=== PATIENT | female | born 1955 | race Caucasian/White ===

== ENCOUNTER 2016-10-08 18:25 | Emergency (ER) | payer BC ==
[2016-10-08 20:21] LABS: Hematocrit 41 % (35-47); Hemoglobin 13.4 g/dl (12.0-16.0); Mean Corpuscular HGB Conc 33 g/dl (31-36); Mean Corpuscular Hemoglobin 30 pg (27-31); Mean Corpuscular Volume 93 fL (80-97); Mean Platelet Volume 8 um3 (7.4-10.4); Red Blood Count 4.43 10^6/ul (4.0-5.4); Red Cell Distribution Width 13 % (10.5-15)
[2016-10-08 20:38] LABS: Albumin 3.8 g/dL (3.2-5.2); BUN/Creatinine Ratio 20.2 (8-20); Calcium 9.1 mg/dL (8.6-10.3); EGFR African American 88.4 (>60); EGFR Non-African American 68.7 (>60); Globulin 2.6 g/dL (2-4); Potassium 3.7 mmol/L (3.5-5.0); Total Bilirubin 0.4 mg/dL (0.2-1.0); Total Protein 6.4 g/dL (6.4-8.9)
--- NOTE | 2016-10-08 21:01 | RAD ---
Indication: Chest pain. 2 views of the chest including dual energy PA views demonstrate no mediastinal shift. Heart is of normal size and configuration. Lung christian demonstrate no pleural fluid, pneumonia or pneumothorax. No changes noted since previous exam of July 24, 2016. IMPRESSION: No active cardiopulmonary disease is noted.
--- NOTE | 2016-10-08 21:21 | ED ---
Supriya Fried Rebecca, scribed for Luigi Chun MD on 10/08/16 at 1947 . HPI Chest Pain - HPI Summary HPI Summary: Pt is a 60 y/o F who presents to ED c/o CP. Pain began suddenly at 1700 upon coming in from being outdoors and lasted for approximately 30 minutes. Pain was in the right lateral region with radiation to the epigastrum. Pain is currently not present, ranked 0/10 and was characterized as burning. Sx aggravated by nothing, alleviated by cold water and nebulizer treatment. Denies cough. PMHx COPD. Previous similar episodes of pain, with the last one being too long ago to remember. - History of Current Complaint Chief Complaint: EDChestWallPain Time Seen by Provider: 10/08/16 19:38 Hx Obtained From: Patient Onset/Duration: Started Hours Ago, Resolved Time of Onset: 17:00 Timing: Constant, Lasting Minutes - 30 minutes Initial Severity: Moderate Current Severity: None Pain Intensity: 0 Pain Scale Used: 0-10 Numeric Chest Pain Location: Right Lateral Chest Pain Radiates: Yes Chest Pain Radiates To:: Epigastric Character: Burning Aggravating Factor(s): Nothing Alleviating Factor(s): Bronchodilators - Nebulizer, Other: - Cold water Associated Signs and Symptoms: Positive: Chest Pain. Negative: Cough - Allergy/Home Medications Allergies/Adverse Reactions: Allergies Allergy/AdvReac Type Severity Reaction Status Date / Time No Known Allergies Allergy Verified 08/04/15 09:37 PMH/Surg Hx/FS Hx/Imm Hx Endocrine/Hematology History: Reports: Hx Thyroid Disease - hypothyroidism Denies: Hx Diabetes Cardiovascular History: Reports: Hx Coronary Artery Disease - ON MEDICATION Denies: Hx Hypertension, Hx Pacemaker/ICD Respiratory History: Reports: Hx Chronic Obstructive Pulmonary Disease (COPD) Denies: Hx Asthma GI History: Reports: Hx Gastroesophageal Reflux Disease - ON MEDICATION Musculoskeletal History: Reports: Hx Bursitis - LEFT HIP Sensory History: Reports: Hx Contacts or Glasses - GLASSES Denies: Hx Hearing Aid Opthamlomology History: Reports: Hx Contacts or Glasses - GLASSES Neurological History: Reports: Hx Headaches - ON OCASSION, 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 Rt SHOULDER ARTHROSCOPY -02/15/13. PROLAPSED UTERUS -2005 Hx Anesthesia Reactions: Yes - VOMITING AFTER PELVIC SURGERY Infectious Disease History: No Infectious Disease History: Reports: Hx Shingles - states years ago Denies: Traveled Outside the [place] in Last 30 Days - Family History Known Family History: Positive: Other - Hypothyroid - Social History Alcohol Use: None Substance Use Type: Reports: None Smoking Status (MU): Heavy Every Day Tobacco Smoker Amount Used/How Often: 1/2 PPD Review of Systems Positive: Chest Pain - resolved s/p bronchodilators Negative: Cough All Other Systems Reviewed And Are Negative: Yes Physical Exam Triage Information Reviewed: Yes Vital Signs On Initial Exam: Initial Vitals Temp Pulse Resp BP Pulse Ox 98.8 F 71 20 104/64 95 10/08/16 18:32 10/08/16 18:32 10/08/16 18:32 10/08/16 18:32 10/08/16 18:32 Vital Signs Reviewed: Yes Appearance: Positive: No Pain Distress, Thin Skin: Positive: Warm Eyes: Positive: [place] ENT: Positive: Hearing grossly normal Neck: Positive: Supple Respiratory/Lung Sounds: Positive: Clear to Auscultation, Breath Sounds Present Cardiovascular: Positive: RRR Abdomen Description: Positive: Nontender, Soft Bowel Sounds: Positive: Present Musculoskeletal: Positive: Strength/ROM Intact Neurological: Positive: Sensory/Motor Intact, Normal Gait Psychiatric: Positive: Affect/Mood Appropriate Diagnostics - Vital Signs Vital Signs Temp Pulse Resp BP Pulse Ox 10/08/16 18:32 98.8 F 71 20 104/64 95 - Laboratory Lab Results: Lab Results 10/08/16 10/08/16 Range/Units 20:11 20:11 WBC 12.0 H (3.5-10.8) 10^3/ul RBC 4.43 (4.0-5.4) 10^6/ul Hgb 13.4 (12.0-16.0) g/dl Hct 41 (35-47) % MCV 93 (80-97) fL MCH 30 (27-31) pg MCHC 33 (31-36) g/dl RDW 13 (10.5-15) % Plt Count 264 (150-450) 10^3/ul MPV 8 (7.4-10.4) um3 Neut % (Auto) 62.9 (38-83) % Lymph % (Auto) 24.4 L (25-47) % Story % (Auto) 8.5 (1-9) % Eos % (Auto) 3.0 (0-6) % Baso % (Auto) 1.2 (0-2) % Absolute Neuts (auto) 7.6 (1.5-7.7) 10^3/ul Absolute Lymphs (auto) 2.9 (1.0-4.8) 10^3/ul Absolute Monos (auto) 1.0 H (0-0.8) 10^3/ul Absolute Eos (auto) 0.4 (0-0.6) 10^3/ul Absolute Basos (auto) 0.1 (0-0.2) 10^3/ul Absolute Nucleated RBC 0.01 10^3/ul Nucleated RBC % 0.1 Sodium 132 L (133-145) mmol/L Potassium 3.7 (3.5-5.0) mmol/L Chloride 101 (101-111) mmol/L Carbon Dioxide 26 (22-32) mmol/L Anion Gap 5 (2-11) mmol/L BUN 17 (6-24) mg/dL Creatinine 0.84 (0.51-0.95) mg/dL Est GFR ( Amer) 88.4 (>60) Est GFR (Non-Af Amer) 68.7 (>60) BUN/Creatinine Ratio 20.2 H (8-20) Glucose 114 H (70-100) mg/dL Calcium 9.1 (8.6-10.3) mg/dL Total Bilirubin 0.40 (0.2-1.0) mg/dL AST 19 (13-39) U/L ALT 17 (7-52) U/L Alkaline Phosphatase 82 (34-104) U/L Troponin I 0.00 (<0.04) ng/mL Total Protein 6.4 (6.4-8.9) g/dL Albumin 3.8 (3.2-5.2) g/dL Globulin 2.6 (2-4) g/dL Albumin/Globulin Ratio 1.5 (1-3) Result Diagrams: 10/08/16 20:11 10/08/16 20:11 Lab Statement: Any lab studies that have been ordered have been reviewed, and results considered in the medical decision making process. - Radiology CXR Xray Interpretation: No Acute Changes - No active cardiopulmonary disease is noted. Radiology Interpretation Completed By: Radiologist - EKG 1842 Cardiac Rate: Bradycardia - 59 bpm EKG Rhythm: Sinus Bradycardia ST Segment: Normal Re-Evaluation - Re-Evaluation First Eval Re-Evaluation Time: 21:17 Change: Improved Comment: Pt is feeling significantly better. Chest Pain Course/Dx - Course Assessment/Plan: Pt is a 60 y/o F with a CC of right lateral chest pain with radiation to the epigastrum. Pain began at 1700 today and lasted approximately 30 minutes. Alleviated by bronchodilators. Denies cough. PMHx COPD. CXR reveals no acute findings. EKG reveals sinus bradycardia. Troponin 0.00. Pt will be D/C to home with a dx of CP with a followup with her PCP. - Diagnoses Provider Diagnoses: Chest pain Discharge - Discharge Plan Condition: Stable Disposition: HOME Patient Education Materials: Chest Pain (ED) Referrals: Yoselin Alcala MD [Primary Care Provider] - 3 Days (Follow up with your primary care physician in the next 3 days. ) The documentation as recorded by the Supriya navarrete Rebecca accurately reflects the service I personally performed and the decisions made by me, Luigi Chun MD.
[2016-10-08 21:36] VITALS: BP 113/64
== END 2016-10-08 21:41 | disposition home or self-care (01) ==
LOC: ED 18:25
DX: R07.9 Chest pain, unspecified (principal); E03.9 Hypothyroidism, unspecified; I25.10 Atherosclerotic heart disease of native coronary artery without angina pectoris; K21.9 Gastro-esophageal reflux disease without esophagitis; G62.9 Polyneuropathy, unspecified; F17.290 Nicotine dependence, other tobacco product, uncomplicated; R00.1 Bradycardia, unspecified
CPT/HCPCS: 36415; 71020; 80053; 84484; 85025; 93005; 99283

== ENCOUNTER 2017-02-07 14:48 | Emergency (ER) | payer BC ==
[2017-02-07 19:42] VITALS: BP 118/70
[2017-02-07] MEDS ORDERED: NS 0.9% 1000 ML* 1,000 ML IV ONE (20:03)
--- NOTE | 2017-02-07 20:10 | RAD ---
HISTORY: Painful lump at umbilicus COMPARISONS: None relevant available at the time of dictation TECHNIQUE: Multiple transverse and longitudinal ultrasound images were obtained of the area of pain at the pelvis using grayscale, color Doppler, and spectral Doppler imaging FINDINGS: There is a hernia at the umbilicus. The hernia contents are isoechoic to adjacent fat, consistent with a fat-containing of focal hernia. There is no bowel mucosal signature. Arterial and venous waveforms are identified within the hernia on spectral tracings. IMPRESSION: FAT-CONTAINING UMBILICAL HERNIA. NO BOWEL MUCOSAL SIGNATURE IS NOTED. ARTERIAL AND VENOUS FLOW IS IDENTIFIED WITHIN THE HERNIA
--- NOTE | 2017-02-07 20:46 | ED ---
Rachel Fried Thomas, scribed for Yin Navarro MD on 02/07/17 at 1854 . Abdominal Pain/Female - HPI Summary HPI Summary: The pt is a 61 y/o F presenting to the ED c/o periumbilical abd pain that began two days ago. She states that her navel protrudes and is painful. She does not normally have an outie belly button. She claims that she has been previously diagnosed with a hernia, but she is unsure. When she is supine the pain is 2/ 10. The pain is 8/10 when it is palpated and when she moves. She last ate at 17: 00. The pain is aggravated by palpation and movement. The pt is greatly distressed at the prospect of palpation, which she is assured will be necessary if she is to consent to further treatment. Pt additionally c/o low back pain. PMHx: CAD, hyperthyroidism, COPD, GERD, L hip bursitis, GAINES, and peripheral neuropathy. PSHx: thyroidectomy, prolapsed uterus, and R shoulder arthroscopy. SHx: no alcohol, no illicit drugs, smoker (1/2 PPD). FHx: hypothyroidism. - History of Current Complaint Chief Complaint: EDAbdPain Stated Complaint: BELLY BUTTON SWELLING Time Seen by Provider: 02/07/17 18:39 Hx Obtained From: Patient Onset/Duration: Gradual Onset, Lasting Days - 2 days, Still Present Timing: Constant Severity Initially: Moderate Severity Currently: Severe Pain Intensity: 8 Pain Scale Used: 0-10 Numeric - with movement, 2/10 when supine Location: Umbilical Radiates: No Character: Sharp Aggravating Factor(s): Movement, Other: - palpation Alleviating Factor(s): Nothing Associated Signs and Symptoms: Positive: Back Pain - lower. Negative: Fever, Decreased Appetite, Nausea, Vomiting Allergies/Adverse Reactions: Allergies Allergy/AdvReac Type Severity Reaction Status Date / Time No Known Allergies Allergy Verified 08/04/15 09:37 PMH/Surg Hx/FS Hx/Imm Hx Previously Healthy: No Endocrine/Hematology History: Reports: Hx Thyroid Disease - hypothyroidism Denies: Hx Diabetes Cardiovascular History: Reports: Hx Coronary Artery Disease Denies: Hx Hypertension, Hx Pacemaker/ICD Respiratory History: Reports: Hx Chronic Obstructive Pulmonary Disease (COPD) Denies: Hx Asthma GI History: Reports: Hx Gastroesophageal Reflux Disease Musculoskeletal History: Reports: Hx Bursitis - LEFT HIP Sensory History: Reports: Hx Contacts or Glasses - GLASSES Denies: Hx Hearing Aid Opthamlomology History: Reports: Hx Contacts or Glasses - GLASSES Neurological History: Reports: Hx Headaches - ON OCASSION, 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 Rt SHOULDER ARTHROSCOPY -02/15/13. PROLAPSED UTERUS -2005 Hx Anesthesia Reactions: Yes - VOMITING AFTER PELVIC SURGERY Infectious Disease History: Reports: Hx Shingles - states years ago Denies: Traveled Outside the [place] in Last 30 Days - Family History Known Family History: Positive: Other - Hypothyroid - Social History Alcohol Use: None Substance Use Type: Reports: None Smoking Status (MU): Heavy Every Day Tobacco Smoker Amount Used/How Often: 1/2 PPD Review of Systems Constitutional: Negative Negative: Fever Eyes: Negative ENT: Negative Cardiovascular: Negative Respiratory: Negative Positive: Abdominal Pain - periumbilical, 8/10 when aggravated with palpation and movement, 2/10 when supine Genitourinary: Negative Positive: Other - POS: low back pain Skin: Negative Neurological: Negative Psychological: Normal All Other Systems Reviewed And Are Negative: Yes Physical Exam Triage Information Reviewed: Yes Vital Signs On Initial Exam: Initial Vitals Temp Pulse Resp BP Pulse Ox 98.2 F 68 18 118/70 97 02/07/17 15:22 02/07/17 15:22 02/07/17 15:22 02/07/17 15:22 02/07/17 15:22 Vital Signs Reviewed: Yes Appearance: Positive: Well-Appearing, Well-Nourished, Pain Distress Skin: Positive: Warm, Skin Color Reflects Adequate Perfusion, Other - redness 4cm surrounding umbilicus Head/Face: Positive: Normal Head/Face Inspection Eyes: Positive: Conjunctiva Clear ENT: Positive: Normal ENT inspection Neck: Positive: Supple Respiratory/Lung Sounds: Positive: Clear to Auscultation, Breath Sounds Present , Other - No respiratory distress Cardiovascular: Positive: RRR, Other - Brisk cap refill. Negative: Murmur Abdomen Description: Positive: Soft, Hernia @ - umbilical, Other: - tender to palpation to the periumbilicus. Negative: McBurney's Point Tenderness, Peritoneal Signs, Pulsatile Mass, Splenomegaly Bowel Sounds: Positive: Present Musculoskeletal: Positive: Strength/ROM Intact Neurological: Positive: Sensory/Motor Intact, Alert, Oriented to Person Place, Time Psychiatric: Positive: Normal Diagnostics - Vital Signs Vital Signs Temp Pulse Resp BP Pulse Ox 02/07/17 16:49 98.2 F 64 18 116/70 98 02/07/17 15:22 98.2 F 68 18 118/70 97 - Laboratory Lab Statement: Any lab studies that have been ordered have been reviewed, and results considered in the medical decision making process. - Additional Comments Diagnostic Additional Comments: US Abdo. Interpreted by radiologist. Impression: FAT-CONTAINING UMBILICAL HERNIA. NO BOWEL MUCOSAL SIGNATURE IS NOTED. ARTERIAL AND VENOUS FLOW IS IDENTIFIED WITHIN THE HERNIA Re-Evaluation - Re-Evaluation First Eval Re-Evaluation Time: 19:50 Change: Unchanged - pt refuses all bloodwork and IV meds Abdominal Pain Fem Course/Dx - Course Course Of Treatment: The pt is a 61 y/o F presenting to the ED c/o periumbilical abd pain that began two days ago. She states that her navel protrudes and is painful. She does not normally have an outie belly button. She claims that she has been previously diagnosed with a hernia, but she is unsure. When she is supine the pain is 2/10. The pain is 8/10 when it is palpated and when she moves. She last ate at 17:00. The pain is aggravated by palpation and movement. The pt is greatly distressed at the prospect of palpation, which she is assured will be necessary if she is to consent to further treatment. Pt additionally c/o low back pain. PMHx: CAD, hyperthyroidism , COPD, GERD, L hip bursitis, GAINES, and peripheral neuropathy. PSHx: thyroidectomy , prolapsed uterus, and R shoulder arthroscopy. SHx: no alcohol, no illicit drugs, smoker (1/2 PPD). FHx: hypothyroidism. US Abdo reveals FAT-CONTAINING UMBILICAL HERNIA. NO BOWEL MUCOSAL SIGNATURE IS NOTED. ARTERIAL AND VENOUS. FLOW IS IDENTIFIED WITHIN THE HERNIA. Patients medication reviewed this visit. Dr. Muñoz, general surgery, was consulted for the case. He is here to evaluate at 19:45. When discussing US Abdo results, since the hernia does not contain bowel, he recommends to discharge home with close office follow up, since pt does not want further treatment at this time. Patient is diagnosed with fat containing umbilical hernia. The pt is also diagnosed with tobacco abuse disorder. Patient will be discharged home. Pt is agreeable with this plan. - Diagnoses Provider Diagnoses: Tobacco abuse disorder, Umbilical hernia - Provider Notifications Discussed Care Of Patient With: Alessandro Muñoz Time Discussed With Above Provider: 19:09 Instructed by Provider To: Other - Informed of patient. He is in the ED to see the patient at 19:50. He recommends a CT Abdo if the US indicates. After hearing of US Abdo indicating only fat, not bowel, Dr. Muñoz recommends may send the pt home. Discharge - Discharge Plan Condition: Stable Disposition: HOME Patient Education Materials: How to Stop Smoking (ED), Umbilical Hernia (ED) Referrals: Yoselin Alcala MD [Primary Care Provider] - 2 Days Alessandro Muñoz MD [Medical Doctor] - 3 Days Additional Instructions: Dr. Muñoz has examined you in the ER. He has given you his card and he wants to see you in his office on Friday02/10/17. You should be prepared for him to do a procedure to fix this hernia. You will be able to schedule this with him. You may take acetaminophen and ibuprofen for the pain. We have given you a copy of the ultrasound report. Return to the ER if you have new or worsening symptoms, including, but not limited to, vomiting, fever, increased abdominal pain. The documentation as recorded by the Rachel navarrete Thomas accurately reflects the service I personally performed and the decisions made by , Yin Navarro MD.
== END 2017-02-07 20:48 | disposition home or self-care (01) ==
LOC: ED 14:48
DX: K42.9 Umbilical hernia without obstruction or gangrene (principal); M54.5 Low back pain; R10.33 Periumbilical pain; F17.210 Nicotine dependence, cigarettes, uncomplicated
CPT/HCPCS: 76705; 99282

== ENCOUNTER 2017-07-29 10:45 | Emergency (ER) | payer BC ==
[2017-07-29] MEDS ORDERED: Sulfamethox/Trimethoprim DS 800/160* TAB PO ONE (11:10)
[2017-07-29] MEDS ORDERED: Cephalexin CAP* 500 MG PO ONE (11:10)
--- NOTE | 2017-07-29 12:08 | RAD ---
INDICATION: LEFT elbow pain and swelling. No reported injury. COMPARISON: No relevant prior exams available on the [facility] PACS for comparison. TECHNIQUE: AP, lateral, and oblique views LEFT elbow. REPORT AND IMPRESSION: Negative for fracture or focal osseous lesions. Normal articular alignment and preserved joint spaces. No appreciable osteophytosis. Minimal calcific tendinopathy at the insertion of the triceps tendon. Mild dorsal soft tissue swelling.
[2017-07-29 12:27] VITALS: BP 123/74
--- NOTE | 2017-08-08 15:43 | ED ---
Kenan Fried Angela, scribed for Clive Quñionez MD on 07/29/17 at 1112 . Upper Extremity Pain - HPI Summary HPI Summary: This pt is a 61 y/o female, right hand dominant, presenting to [facility] c/o left elbow pain for a few days. Pt denies any trauma or injury to her elbow. Pt states her pain has been getting worse. She notes decreased ROM of left elbow, difficulty stretching and bending elbow, worse in the mornings. Denies fever, shoulder pain, hand pain. - History of Current Complaint Chief Complaint: EDExtremityUpper Stated Complaint: LEFT ELBOW INJURY Hx Obtained From: Patient Mechanism Of Injury: Other - none Onset/Duration: Started Days Ago, Atraumatic, Still Present Timing: Lasting Days Severity Currently: Moderate Pain Location: Elbow - left Aggravating Factor(s): Movement, Extension Associated Signs & Symptoms: Negative: Swelling, Weakness, Numbness/Tingling Related History: Dominant Hand Right - Allergies/Home Medications Allergies/Adverse Reactions: Allergies Allergy/AdvReac Type Severity Reaction Status Date / Time No Known Allergies Allergy Verified 08/04/15 09:37 PMH/Surg Hx/FS Hx/Imm Hx Endocrine/Hematology History: Reports: Hx Thyroid Disease - hypothyroidism Denies: Hx Diabetes Cardiovascular History: Reports: Hx Coronary Artery Disease, Other Cardiovascular Problems/Disorders - CAD Denies: Hx Hypertension, Hx Pacemaker/ICD Respiratory History: Reports: Hx Chronic Obstructive Pulmonary Disease (COPD) Denies: Hx Asthma GI History: Reports: Hx Gastroesophageal Reflux Disease Musculoskeletal History: Reports: Hx Bursitis - LEFT HIP Sensory History: Reports: Hx Contacts or Glasses - GLASSES Denies: Hx Hearing Aid Opthamlomology History: Reports: Hx Contacts or Glasses - GLASSES Neurological History: Reports: Hx Headaches - ON OCASSION, 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 Rt SHOULDER ARTHROSCOPY -02/15/13. PROLAPSED UTERUS -2005 Hx Anesthesia Reactions: Yes - VOMITING AFTER PELVIC SURGERY - Immunization History Date of Tetanus Vaccine: unk Date of Influenza Vaccine: unk Infectious Disease History: No Infectious Disease History: Reports: Hx Shingles - states years ago Denies: Traveled Outside the [place] in Last 30 Days - Family History Known Family History: Positive: Other - Hypothyroid - Social History Alcohol Use: None Substance Use Type: Reports: None Smoking Status (MU): Heavy Every Day Tobacco Smoker Amount Used/How Often: 1/2 PPD Review of Systems Negative: Fever, Chills ENT: Negative Cardiovascular: Negative Respiratory: Negative Musculoskeletal: Other - left elbow pain Negative: Other - hand pain, shoulder pain. Skin: Negative All Other Systems Reviewed And Are Negative: Yes Physical Exam - Summary Physical Exam Summary: Appearance: Well-appearing, Well-nourished. No acute distress. Skin: Warm. No erythema. No open lesions. No petechiae. Eyes: Normal ENT: Normal Neck: Supple, nontender Respiratory: Clear to auscultation Cardiovascular: Normal Abdomen/GI: Soft, nontender Musculoskeletal: Strength/ROM Intact. Full ROM with pain and tenderness of the left elbow. Mild swelling along the lateral epicondyle. Tender to palpation. No erythema. No humerus or shoulder tenderness. Normal function of the hand. Normal ulnar, radial, and median nerve functions. Good distal pulses. Neurological: Normal, A&Ox3 Psychiatric: Normal Triage Information Reviewed: Yes Vital Signs On Initial Exam: Initial Vitals Temp Pulse Resp BP Pulse Ox 99.4 F 66 18 121/72 97 07/29/17 10:58 07/29/17 10:58 07/29/17 10:58 07/29/17 10:58 07/29/17 10:58 Vital Signs Reviewed: Yes Diagnostics - Vital Signs Vital Signs Temp Pulse Resp BP Pulse Ox 07/29/17 10:58 99.4 F 66 18 121/72 97 - Laboratory Lab Statement: Any lab studies that have been ordered have been reviewed, and results considered in the medical decision making process. - Radiology Left elbow XR Xray Interpretation: Positive (See Comments) - IMPRESSION: Negative for fracture or focal osseous lesions. Normal articular alignment and preserved joint spaced. No appreciable osteophytosis. Minimal calcific tendinopathy at the insertion of the triceps tendon. Mild dorsal soft tissue swelling. Dr. Quiñonez has reviewed this radiology report. Radiology Interpretation Completed By: Radiologist Course/Dx - Course Course Of Treatment: Elbow XR is negative without any dislocation or fracture. Distal neurovascular exam remains intact. Possible underlying cellulitis, will treat with antibiotics. Instructed to follow up with orthopedist if no improvement and return to the ED for any concerning symptoms such as fever, numbness, and weakness. I have a very low clinical suspicion for septic arthritis in this pt, given full ROM and lack of constitutional symptoms. Pt agrees and understands discharge instructions. - Diagnoses Provider Diagnoses: Cellulitis, Elbow sprain Discharge - Discharge Plan Condition: Improved Disposition: HOME Prescriptions: Cephalexin CAP* [Keflex CAP*] 500 mg PO QID #28 cap Sulfamethox/Trimethoprim DS* [Bactrim DS 800/160 TAB*] 1 tab PO BID #14 tab Patient Education Materials: Cellulitis (ED), Elbow Sprain (ED) Referrals: Yoselin Alcala MD [Primary Care Provider] - Aden Abdi MD [Medical Doctor] - Additional Instructions: PLEASE TAKE MEDICATIONS DIRECTED PLEASE MAKE AN APPOINTMENT FIRST THING IN THE MORNING TO BE SEEN BY AN ORTHOPEDIST IF NO IMPROVEMENT PLEASE RETURN IMMEDIATELY TO THE ER IF YOU HAVE ANY WORSENING OR CONCERNING SYMPTOMS PLEASE MAKE AN APPOINTMENT TO BE SEEN BY YOUR PRIMARY CARE DOCTOR WITHIN 1 WEEK The documentation as recorded by the Kenan navarrete Angela accurately reflects the service I personally performed and the decisions made by me, Clive Quiñnoez MD.
== END 2017-07-29 12:26 | disposition home or self-care (01) ==
LOC: ED 10:45
DX: L03.114 Cellulitis of left upper limb (principal); S53.402A Unspecified sprain of left elbow, initial encounter; F17.200 Nicotine dependence, unspecified, uncomplicated
CPT/HCPCS: 99282; A9270-GY

== ENCOUNTER 2017-10-14 19:41 | Emergency (ER) | payer BC ==
--- NOTE | 2017-10-14 20:51 | RAD ---
indication: Head and neck pain after trauma to the occiput 2 days earlier COMPARISON: None A CT scan of the brain and c-spine was performed without intravenous contrast enhancement. Contiguous axial sections were obtained from the lung apices through the vertex. BRAIN: The ventricles, cisterns and sulci are within normal limits. No significant focal abnormality or mass effect is seen. The almazan-white differentiation is adequately maintained. There is no intracranial hemorrhage. No significant bony abnormality is present. The mastoid air cells are appropriately aerated. The visualized paranasal sinuses are clear. C-SPINE: On the sagittal view images there is nonspecific straightening of the normal cervical lordosis. The vertebral bodies and facet joints are otherwise appropriately aligned. Degenerative changes include loss of intervertebral disc height at the mid-level and lower cervical spine. At the same levels there is mild uncovertebral hypertrophy with the most severe degenerative changes at the left-sided C5/C6 uncovertebral joint. There is no prevertebral soft tissue swelling. There is no hyperdense material in the cervical canal to indicate hemorrhage. The visualized musculature and soft tissues are normal. There is no gross lymphadenopathy visualized. The visualized portion of the lung apices are clear. IMPRESSION: 1. No calvarial fracture or acute intracranial hemorrhage. 2. Degenerative changes as described above without acute fracture or dislocation of the cervical spine.
--- NOTE | 2017-10-14 21:03 | RAD ---
INDICATION: Pain after a fall TECHNIQUE: An AP view of the pelvis was obtained. FINDINGS: The bones are in normal alignment. No fracture is seen. Joint spaces appear maintained. IMPRESSION: NO EVIDENCE FOR FRACTURE. IF THE PATIENT'S SYMPTOMS PERSIST RECOMMEND FOLLOW-UP IMAGING.
--- NOTE | 2017-10-14 21:04 | RAD ---
INDICATION: Back pain after a fall COMPARISON: None. TECHNIQUE: 5 views of the lumbar spine were obtained. FINDINGS: The vertebra are in normal alignment. No fracture is seen. Degenerative changes include loss of intervertebral disc height at the lower lumbar spine. IMPRESSION: Mild degenerative changes without radiographically apparent fracture or dislocation.
--- NOTE | 2017-10-14 21:15 | ED ---
Manjit Fried Jennifer, scribed for Gerard Abdullahi on 10/14/17 at 2003 . Head Injury - HPI Summary HPI Summary: The patient is a 61 year old female who complains of head pain and headache since she fell two nights ago. The patient reports she accidentally fell backwards and hit the back of her head. She explains there was bleeding at the time of the fall, but she did not come to the ED for evaluation. However, she has had headaches and a little neck pain today. The patient additionally complains of pain near her tailbone. She denies chest pain, abdominal pain, and back pain. She denies taking blood thinners. - History Of Current Complaint Chief Complaint: EDHeadInjury Stated Complaint: HEAD INJURY Time Seen by Provider: 10/14/17 19:54 Hx Obtained From: Patient Mechanism Of Injury: Fall From A Standing Position Onset/Duration: Started Days Ago - two days Onset of Pain: Immediate Severity Currently: Severe Severity Initially: Severe Pain Intensity: 9 Pain Scale Used: 0-10 Numeric Location of Head Injury: Occipital Associated Signs And Symptoms: Other: - Laceration on head, headache, neck pain , pain near tailbone. NEGATIVE: chest pain, abdominal pain, back pain - Allergies/Home Medications Allergies/Adverse Reactions: Allergies Allergy/AdvReac Type Severity Reaction Status Date / Time No Known Allergies Allergy Verified 10/14/17 19:46 PMH/Surg Hx/FS Hx/Imm Hx Endocrine/Hematology History: Reports: Hx Thyroid Disease - hypothyroidism Denies: Hx Diabetes Cardiovascular History: Reports: Hx Coronary Artery Disease, Other Cardiovascular Problems/Disorders - CAD Denies: Hx Hypertension, Hx Pacemaker/ICD Respiratory History: Reports: Hx Chronic Obstructive Pulmonary Disease (COPD) Denies: Hx Asthma GI History: Reports: Hx Gastroesophageal Reflux Disease Musculoskeletal History: Reports: Hx Bursitis - LEFT HIP Sensory History: Reports: Hx Contacts or Glasses - GLASSES Denies: Hx Hearing Aid Opthamlomology History: Reports: Hx Contacts or Glasses - GLASSES Neurological History: Reports: Hx Headaches - ON OCASSION, 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 Rt SHOULDER ARTHROSCOPY -02/15/13. PROLAPSED UTERUS -2005 Hx Anesthesia Reactions: Yes - VOMITING AFTER PELVIC SURGERY - Immunization History Date of Tetanus Vaccine: unk Date of Influenza Vaccine: unk Infectious Disease History: No Infectious Disease History: Reports: Hx Shingles - states years ago Denies: Traveled Outside the [place] in Last 30 Days - Family History Known Family History: Positive: Other - Hypothyroid - Social History Alcohol Use: None Substance Use Type: Reports: None Smoking Status (MU): Heavy Every Day Tobacco Smoker Amount Used/How Often: 1/2 PPD Review of Systems ENT: Other - Head pain Negative: Chest Pain Negative: Abdominal Pain Musculoskeletal: Negative - back pain Positive: Other - Neck pain, pain near tailbone Positive: Headache All Other Systems Reviewed And Are Negative: Yes Physical Exam - Summary Physical Exam Summary: Appearance: Well appearing, no pain distress Skin: Discoloration of left buttock. warm, dry, reflects adequate perfusion Head/face: Tenderness of occipital area of scalp. Healed laceration present over occipital scalp. Eyes: EOMI, GU[place]UPE ENT: normal Neck: supple, non-tender Respiratory: CTA, breath sounds present Cardiovascular: RRR, pulses symmetrical ~ Abdomen: non-tender, soft Bowel: present Musculoskeletal: Tenderness over the lower lumbar spine with muscle spasm. strength/ROM intact Neuro: normal, sensory motor intact, A&Ox3 Triage Information Reviewed: Yes Vital Signs On Initial Exam: Initial Vitals Temp Pulse Resp BP Pulse Ox 98.0 F 69 18 164/103 99 10/14/17 19:43 10/14/17 19:43 10/14/17 19:43 10/14/17 19:43 10/14/17 19:43 Vital Signs Reviewed: Yes Diagnostics - Vital Signs Vital Signs Temp Pulse Resp BP Pulse Ox 10/14/17 19:43 98.0 F 69 18 164/103 99 - Laboratory Lab Statement: Any lab studies that have been ordered have been reviewed, and results considered in the medical decision making process. - Radiology L-Spine XR Xray Interpretation: No Acute Changes - Mild degenerative changes without radiographically apparent fracture or dislocation. Dr. Abdullahi has reviewed this report. Radiology Interpretation Completed By: Radiologist Pelvis XR Xray Interpretation: No Acute Changes - NO EVIDENCE FOR FRACTURE. IF THE PATIENT 'S SYMPTOMS PERSIST RECOMMEND FOLLOW-UP IMAGING. Dr. Abdullahi has reviewed this report. Radiology Interpretation Completed By: Radiologist - CT CT Brain CT Interpretation: No Acute Changes - 1. No calvarial fracture or acute intracranial hemorrhage. 2. Degenerative changes as described above without acute fracture or dislocation of the cervical spine. Dr. Abdullahi has reviewed this report. CT Interpretation Completed By: Radiologist CT C-Spine CT Interpretation: No Acute Changes - 1. No calvarial fracture or acute intracranial hemorrhage. 2. Degenerative changes as described above without acute fracture or dislocation of the cervical spine. Dr. Abdullahi has reviewed this report. CT Interpretation Completed By: Radiologist Head Injury Course/Dx Course Of Treatment: The patient is a 61 year old female who complains of head pain and headache since she fell two nights ago. CT Brain, CT C-Spine, L-Spine XR, and Pelvis XR were obtained. The patient is diagnosed with head injury, healing laceration on scalp, back pain, and fall. The patient is instructed to follow up with PCP in 3 days. - Diagnoses Differential Diagnosis/HQI/PQRI: Cerebral Contusion, Cervical Sprain, Concussion Without LOC, Intracranial Bleed Provider Diagnoses: Head injury, Healing laceration, Back pain, Fall Discharge - Sign-Out/Discharge Documenting (check all that apply): Discharge - Discharge Plan Condition: Stable Disposition: HOME Patient Education Materials: Laceration (ED), Head Injury (ED), Back Pain (ED) , Fall Prevention (ED) Referrals: Yoselin Alcala MD [Primary Care Provider] - 3 Days Additional Instructions: Follow up with your primary care physician in three days. Return to the emergency department for any new or worsening symptoms. - Billing Disposition and Condition Condition: STABLE Disposition: HOME The documentation as recorded by the Manjit navarrete Jennifer accurately reflects the service I personally performed and the decisions made by Bradly lebron Emmanuel.
[2017-10-14 21:25] VITALS: BP 128/73
== END 2017-10-14 21:25 | disposition home or self-care (01) ==
LOC: ED 19:41
DX: S01.91XA Laceration without foreign body of unspecified part of head, initial encounter (principal); W19.XXXA Unspecified fall, initial encounter; Y92.9 Unspecified place or not applicable; I25.10 Atherosclerotic heart disease of native coronary artery without angina pectoris; Z87.19 Personal history of other diseases of the digestive system; F17.210 Nicotine dependence, cigarettes, uncomplicated; R51 Headache; M54.9 Dorsalgia, unspecified
CPT/HCPCS: 70450; 72110; 72125; 72170; 99282

== ENCOUNTER 2017-12-09 21:20 | Inpatient (IN) | payer BC ==
--- NOTE | 2017-12-09 21:48 | ED ---
Substance Abuse/Use - HPI Summary HPI Summary: Patient brought to the ED for possible OD. Patient is somnolent, but coherent and appropriate once awake. Oriented to self and date, but not to place. Calm , and cooperative. Admits to drinking one glass of rum and Coke, taking 3 ibuprofen, and 6 Ambien 10 mg around 6 PM. Patient admits to taking pills in order to go to sleep and not wake up. Unconfirmed but apparently filed for divorce today. Denies knowledge of fall, denies any pain or symptoms of illness. Patient has prescription for Ambien. - History Of Current Complaint Chief Complaint: EDSubstanceAbuse Stated Complaint: OVERDOSE Time Seen by Provider: 12/09/17 21:30 Hx Obtained From: Patient Onset/Duration of Drug/ETOH Abuse: Hours Overdose Characteristics: Oral Character: Stuporous Aggravating Factor(s): Recent Stress - Allergies/Home Medications Allergies/Adverse Reactions: Allergies Allergy/AdvReac Type Severity Reaction Status Date / Time No Known Allergies Allergy Verified 12/04/17 16:47 Home Medications: Home Medications Atorvastatin* [Lipitor*] 20 mg PO BEDTIME 12/09/17 [History Confirmed 12/09/17] Cholecalciferol (Vitamin D3) [Vitamin D3] 2,000 unit PO DAILY 12/09/17 [History Confirmed 12/09/17] Gabapentin CAP(*) [Neurontin 300 CAP(*)] 300 mg PO 1200 12/09/17 [History Confirmed 12/09/17] Gabapentin CAP(*) [Neurontin 300 CAP(*)] 600 mg PO BID 12/09/17 [History Confirmed 12/09/17] Zolpidem TAB* [Ambien TAB*] 10 mg PO BEDTIME PRN 12/09/17 [History Confirmed ] PMH/Surg Hx/FS Hx/Imm Hx Endocrine/Hematology History: Reports: Hx Thyroid Disease - hypothyroidism Denies: Hx Diabetes Cardiovascular History: Reports: Hx Coronary Artery Disease, Other Cardiovascular Problems/Disorders - CAD Denies: Hx Hypertension, Hx Pacemaker/ICD Respiratory History: Reports: Hx Chronic Obstructive Pulmonary Disease (COPD) Denies: Hx Asthma GI History: Reports: Hx Gastroesophageal Reflux Disease Musculoskeletal History: Reports: Hx Bursitis - LEFT HIP Sensory History: Reports: Hx Contacts or Glasses - GLASSES Denies: Hx Hearing Aid Opthamlomology History: Reports: Hx Contacts or Glasses - GLASSES Neurological History: Reports: Hx Headaches - ON OCASSION, 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 Rt SHOULDER ARTHROSCOPY -02/15/13. PROLAPSED UTERUS -2005 Hx Anesthesia Reactions: Yes - VOMITING AFTER PELVIC SURGERY - Immunization History Date of Tetanus Vaccine: unk Date of Influenza Vaccine: unk Infectious Disease History: No Infectious Disease History: Reports: Hx Shingles - states years ago Denies: Traveled Outside the [place] in Last 30 Days - Family History Known Family History: Positive: Other - Hypothyroid - Social History Alcohol Use: Daily Substance Use Type: Reports: None Smoking Status (MU): Heavy Every Day Tobacco Smoker Amount Used/How Often: 1/2 PPD Review of Systems Constitutional: Negative Eyes: Negative ENT: Negative Cardiovascular: Negative Respiratory: Negative Gastrointestinal: Negative Genitourinary: Negative Musculoskeletal: Negative Skin: Negative Neurological: Negative Psychological: Normal All Other Systems Reviewed And Are Negative: Yes Physical Exam - Summary Physical Exam Summary: Patient flexes and extends bilateral upper extremities and bilateral lower extremities without any indication of pain. No pain with palpation of face, nose, mouth, head, neck, back, chest wall, abdomen, hips. No evidence of ecchymosis, erythema, lacerations, abrasions to face, head, lips, tongue, teeth , neck, back, abdomen, all extremities. PERRL. somnolent, but alert and oriented to self. Answers appropriately and coherently. Vital Signs On Initial Exam: Initial Vitals Temp Pulse Resp BP Pulse Ox 98.4 F 74 16 162/92 96 12/09/17 21:22 12/09/17 21:22 12/09/17 21:22 12/09/17 21:22 12/09/17 21:22 Appearance: Positive: Well-Appearing Skin: Positive: Warm Head/Face: Positive: Normal Head/Face Inspection Eyes: Positive: Normal ENT: Positive: Normal ENT inspection Neck: Positive: Supple Respiratory/Lung Sounds: Positive: Clear to Auscultation Cardiovascular: Positive: Normal Abdomen Description: Positive: Nontender Musculoskeletal: Positive: Normal Neurological: Positive: Normal Psychiatric: Positive: Normal AVPU Assessment: Alert - Terence Coma Scale Best Eye Response: 4 - Spontaneous Best Motor Response: 6 - Obeys Commands Best Verbal Response: 5 - Oriented Coma Scale Total: 15 Diagnostics - Vital Signs Vital Signs Temp Pulse Resp BP Pulse Ox 12/09/17 21:22 98.4 F 74 16 162/92 96 - Laboratory Result Diagrams: 12/09/17 21:46 12/09/17 21:46 Lab Statement: Any lab studies that have been ordered have been reviewed, and results considered in the medical decision making process. - EKG 1 Cardiac Rate: NL EKG Rhythm: Sinus Rhythm ST Segment: Non-Specific Ectopy: None Re-Evaluation - Re-Evaluation 1 Re-Evaluation Time: 23:56 Comment: Patient sleeping. Vital signs within normal limits and stable. 2 Re-Evaluation Time: 00:27 Comment: Patient able to ambulate to the bathroom to give a urine specimen. 3 Re-Evaluation Time: 01:26 Comment: Patient alert oriented, ambulatory, asking for coffee. Continues to deny any symptoms. Course/Dx - Course Course Of Treatment: Poison control called. Recommends observation for 6 hours. Vital signs within normal limits and stable. Physical exam benign. UA indicates possible UTI, but patient denies symptoms. Observation for 6 hours per poison control. Then mental health evaluation. Discussed patient with Dr. Andres at [address] Andres clears patient medically. Patient will be transferred to flex unit - Diagnoses Provider Diagnoses: Overdose, Suicidal ideation Discharge - Sign-Out/Discharge Documenting (check all that apply): Discharge/Admit/Transfer Signing out patient TO: Alvarez Bains - Discharge Plan Condition: Stable Disposition: [facility] Referrals: Yoselin Alcala MD [Primary Care Provider] - - Billing Disposition and Condition Condition: STABLE Disposition: [facility]
[2017-12-09 22:00] LABS: ABS Basophils 0.1 10^3/ul (0-0.2); ABS Eosinophils 0.3 10^3/ul (0-0.6); ABS Lymphocytes 1.4 10^3/ul (1.0-4.8); ABS Monocytes 0.5 10^3/ul (0-0.8); ABS Neutrophils 3.6 10^3/ul (1.5-7.7); ABS Nucleated RBC 0 10^3/ul; Eosinophil % 5.7 % (0-6); Hematocrit 38 % (35-47); Hemoglobin 12.8 g/dl (12.0-16.0); Lymphocyte % 24.3 % (25-47); Mean Corpuscular HGB Conc 34 g/dl (31-36); Mean Corpuscular Hemoglobin 32 pg (27-31); Mean Corpuscular Volume 94 fL (80-97); Mean Platelet Volume 8.6 um3 (7.4-10.4); Nucleated Red Blood Cells % 0; Platelet Count 251 10^3/ul (150-450); Red Blood Count 3.97 10^6/ul (4.0-5.4); Red Cell Distribution Width 13 % (10.5-15); White Blood Count 5.9 10^3/ul (3.5-10.8)
[2017-12-09 22:17] LABS: EGFR Non-African American 75.7 (>60)
[2017-12-10 00:45] LABS: Urine Appearance Clear; Urine Blood Negative (Negative); Urine Color Straw; Urine Ketones Negative (Negative); Urine Protein Negative (Negative); Urine Specific Gravity 1.005 (1.010-1.030); Urine Urobilinogen Negative (Negative)
--- NOTE | 2017-12-10 06:44 | ED ---
Progress - Progress Note Progress Note: I supervised the care of the physician promotional advertising assistant and performed a history and physical on this patient. History: Making suicidal statements at home with as witness. Ingestion of 4-6 Ambien, drinking alcohol in effort to harm herself. Very drowsy here with limited history. Physical exam: Drowsy but with stable vitals, clear lungs and regular heart rate. No evidence of self injury to the body. Plan: Observe until sober. Mental health evaluation. Course: Patient had crisis evaluation following sobering. She was accepted for admission on involuntary basis by . - Consult/PCP Time Called: 02:30 Re-Evaluation - Re-Evaluation 1 Re-Evaluation Time: 23:56 Comment: Patient sleeping. Vital signs within normal limits and stable. 2 Re-Evaluation Time: 00:27 Comment: Patient able to ambulate to the bathroom to give a urine specimen. 3 Re-Evaluation Time: 01:26 Comment: Patient alert oriented, ambulatory, asking for coffee. Continues to deny any symptoms. Course/Dx - Course Course Of Treatment: Poison control called. Recommends observation for 6 hours. Vital signs within normal limits and stable. Physical exam benign. UA indicates possible UTI, but patient denies symptoms. Observation for 6 hours per poison control. Then mental health evaluation. Discussed patient with Dr. Andres at [address] Andres clears patient medically. Patient will be transferred to flex unit - Diagnoses Provider Diagnoses: Overdose, Suicidal ideation, Adjustment disorder with depressed mood Discharge - Sign-Out/Discharge Documenting (check all that apply): Discharge/Admit/Transfer - Discharge Plan Condition: Stable Disposition: ADMITTED TO [facility] Referrals: Yoselin Alcala MD [Primary Care Provider] - - Billing Disposition and Condition Condition: STABLE Disposition: [facility]
--- NOTE | 2017-12-10 08:34 | PN ---
ED Flex Patient Progress Note Date of Service: 12/10/17 Subjective: This is a 61 year-old F who is pending admission to [facility] secondary to ETOH dependence and SI behavior. Pt does not want to be admitted. Objective: Vitals: Most recent vital signs documented below. General NAD, Alert and oriented x3. Heart: rrr at 80bpm Lungs: CTA or with rales, rhonchi, wheezing Laboratory: Current laboratory results documented below. Assessment: ETOH dependence SI behavior Plan: Pending psychiatric to admit will follow up daily until bed available condition:Stable disposition:Admitted Vital Signs Temp Pulse Resp BP Pulse Ox 98.4 F 63 14 145/93 97 12/09/17 21:22 12/10/17 03:00 12/10/17 03:00 12/10/17 01:57 12/10/17 03:00 Lab Results - Entire Visit 12/10/17 12/10/17 12/09/17 00:28 00:28 21:46 WBC RBC Hgb Hct MCV MCH MCHC RDW Plt Count MPV Neut % (Auto) Lymph % (Auto) [place] % (Auto) Eos % (Auto) Baso % (Auto) Absolute Neuts (auto) Absolute Lymphs (auto) Absolute Monos (auto) Absolute Eos (auto) Absolute Basos (auto) Absolute Nucleated RBC Nucleated RBC % Sodium 140 Potassium 3.3 L Chloride 108 Carbon Dioxide 23 Anion Gap 9 BUN 9 Creatinine 0.77 Est GFR ( Amer) 97.4 Est GFR (Non-Af Amer) 75.7 BUN/Creatinine Ratio 11.7 Glucose 103 H Calcium 9.0 Total Bilirubin 0.30 AST 20 ALT 13 Alkaline Phosphatase 71 Total Protein 6.4 Albumin 3.9 Globulin 2.5 Albumin/Globulin Ratio 1.6 Urine Color Straw Urine Appearance Clear Urine pH 5.0 Ur Specific [place] 1.005 L Urine Protein Negative Urine Ketones Negative Urine Blood Negative Urine Nitrate Negative Urine Bilirubin Negative Urine Urobilinogen Negative Ur Leukocyte Esterase 3+ A Urine WBC (Auto) 2+(11-20/hpf) A Urine RBC (Auto) Absent Ur Squamous Epith Cells Present A Ur Transition Epith Cell Present A Urine Bacteria Absent Urine Glucose Negative Salicylates < 2.50 Urine Opiates Screen None detected Acetaminophen < 15 Ur Barbiturates Screen None detected Ur Phencyclidine Scrn None detected Ur Amphetamines Screen None detected U Benzodiazepines Scrn None detected Urine Cocaine Screen None detected U Cannabinoids Screen None detected Serum Alcohol 41 H 12/09/17 21:46 WBC 5.9 RBC 3.97 L Hgb 12.8 Hct 38 MCV 94 MCH 32 H MCHC 34 RDW 13 Plt Count 251 MPV 8.6 Neut % (Auto) 60.5 Lymph % (Auto) 24.3 L [place] % (Auto) 8.2 H Eos % (Auto) 5.7 Baso % (Auto) 1.3 Absolute Neuts (auto) 3.6 Absolute Lymphs (auto) 1.4 Absolute Monos (auto) 0.5 Absolute Eos (auto) 0.3 Absolute Basos (auto) 0.1 Absolute Nucleated RBC 0 Nucleated RBC % 0 Sodium Potassium Chloride Carbon Dioxide Anion Gap BUN Creatinine Est GFR ( Amer) Est GFR (Non-Af Amer) BUN/Creatinine Ratio Glucose Calcium Total Bilirubin AST ALT Alkaline Phosphatase Total Protein Albumin Globulin Albumin/Globulin Ratio Urine Color Urine Appearance Urine pH Ur Specific [place] Urine Protein Urine Ketones Urine Blood Urine Nitrate Urine Bilirubin Urine Urobilinogen Ur Leukocyte Esterase Urine WBC (Auto) Urine RBC (Auto) Ur Squamous Epith Cells Ur Transition Epith Cell Urine Bacteria Urine Glucose Salicylates Urine Opiates Screen Acetaminophen Ur Barbiturates Screen Ur Phencyclidine Scrn Ur Amphetamines Screen U Benzodiazepines Scrn Urine Cocaine Screen U Cannabinoids Screen Serum Alcohol
[2017-12-10] MEDS: Levothyroxine TAB* 125 MCG TAB PO SCH (10:13)
[2017-12-10] MEDS: Omeprazole CAP* 20 MG PO SCH (10:13)
[2017-12-10] MEDS ORDERED: Al Hydrox/Mg Hydrox/Simet LIQ* 30 ML UDC PO PRN (13:54)
[2017-12-10] MEDS ORDERED: Acetaminophen TAB* 325 MG PO PRN (13:54)
[2017-12-10] MEDS: Nicotine Inhaler* 10 MG AMP INH PRN ×2 (16:07→20:44)
[2017-12-10] MEDS: Mouth Piece, Nicotine* 1 EACH CARTRIDGE INH PRN ×2 (16:07→20:45)
--- NOTE | 2017-12-10 17:34 | ED ---
Raul Fried Elizabeth, scribed for Tiago Nathan MD on 12/10/17 at 1336 . Progress - Progress Note Progress Note: The patient will be admitted to the psychiatric unit of [facility] with dx of depressive episode. Course/Dx - Course Course Of Treatment: Patient will be admitted to the psychiatric unit of [facility]. - Diagnoses Provider Diagnoses: Depressive episode Discharge - Sign-Out/Discharge Documenting (check all that apply): Discharge/Admit/Transfer - Discharge Plan Condition: Stable Disposition: ADMITTED TO [facility] Referrals: Yoselin Alcala MD [Primary Care Provider] - The documentation as recorded by the Raul navarrete Elizabeth accurately reflects the service I personally performed and the decisions made by Jac lebron Jerry, MD.
[2017-12-10] MEDS: Nicotine GUM* 2 MG PO PRN (20:45)
[2017-12-10] MEDS ORDERED: Atorvastatin* 20 MG TAB PO SCH (21:00)
[2017-12-10] MEDS: Gabapentin CAP(*) 300 MG PO SCH (23:00)
[2017-12-11] MEDS: Mouth Piece, Nicotine* 1 EACH CARTRIDGE INH PRN (05:10)
[2017-12-11] MEDS: Gabapentin CAP(*) 300 MG PO SCH (07:45)
[2017-12-11] MEDS: Omeprazole CAP* 20 MG PO SCH (07:45)
[2017-12-11] MEDS: Levothyroxine TAB* 125 MCG TAB PO SCH (07:46)
[2017-12-11 08:21] VITALS: BP 124/73
[2017-12-11] MEDS ORDERED: Cholecalciferol TAB* 1000 UNITS PO SCH (09:00)
--- NOTE | 2017-12-11 10:37 | HP ---
H&P (Free Text) History and Physical: Psychiatric Attending Combined History and Physical and Discharge Summary NAME: Lucy Cohen : 1955 AGE: 61 PROVIDER: Jeronimo Wiley D.O. DATE OF ADMISSION: 12/10/2017 JUSTIFICATION FOR ADMISSION: Patient attempted suicide by ingesting overdose of prescription medication. Patient is dangerous to self and requires 24 hour supervision, psyschiatric assessment and stabalization on an inpatient psychiatric unit. CHIEF COMPLAINT: HISTORY OF THE PRESENT ILLNESS: PAST PSYCHIATRIC HISTORY: SUBSTANCE ABUSE HISTORY: PAST MEDICAL/SURGICAL HISTORY: Hypothyroidism Coronary Artery Disease COPD GERD Bursitis Left Hip Wears Glasses History of Headaches Neuropathy lower extremities thyroid removal for hyperthyroidism (only 1/2 thyroid removed). Rt SHOULDER ARTHROSCOPY -02/15/13. PROLAPSED UTERUS -2005 Hx Anesthesia Reactions: Yes - VOMITING AFTER PELVIC SURGERY CURRENT MEDICATIONS: Atorvastatin* [Lipitor*] 20 mg PO BEDTIME 12/09/17 [History Confirmed 12/09/17] Cholecalciferol (Vitamin D3) [Vitamin D3] 2,000 unit PO DAILY 12/09/17 [History Confirmed 12/09/17] Gabapentin CAP(*) [Neurontin 300 CAP(*)] 300 mg PO 1200 12/09/17 [History Confirmed 12/09/17] Gabapentin CAP(*) [Neurontin 300 CAP(*)] 600 mg PO BID 12/09/17 [History Confirmed 12/09/17] Zolpidem TAB* [Ambien TAB*] 10 mg PO BEDTIME PRN 12/09/17 [History Confirmed ] ALLERGIES: NKDA FAMILY PSYCHIATRIC HISTORY: FAMILY/PSYCHOSOCIAL HISTORY: REVIEW OF SYSTEMS: PHYSICAL EXAMINATION: MENTAL STATUS EXAMINATION: LABORATORY DATA: Laboratory Results - last 24 hr 12/09/17 21:46 Sodium 140 Potassium 3.3 L Chloride 108 Carbon Dioxide 23 Anion Gap 9 BUN 9 Creatinine 0.77 Est GFR ( Amer) 97.4 Est GFR (Non-Af Amer) 75.7 BUN/Creatinine Ratio 11.7 Glucose 103 H Calcium 9.0 Total Bilirubin 0.30 AST 20 ALT 13 Alkaline Phosphatase 71 Total Protein 6.4 Albumin 3.9 Globulin 2.5 Albumin/Globulin Ratio 1.6 Triglycerides 172 Cholesterol 156 LDL Cholesterol 81 HDL Cholesterol 40.3 TSH 0.62 Free T4 1.18 H Salicylates < 2.50 Acetaminophen < 15 Serum Alcohol 41 H Laboratory Last Values WBC 5.9 10^3/ul (3.5-10.8) 12/09/17 21:46 RBC 3.97 10^6/ul (4.0-5.4) L 12/09/17 21:46 Hgb 12.8 g/dl (12.0-16.0) 12/09/17 21:46 Hct 38 % (35-47) 12/09/17 21:46 MCV 94 fL (80-97) 12/09/17 21:46 MCH 32 pg (27-31) H 12/09/17 21:46 MCHC 34 g/dl (31-36) 12/09/17 21:46 RDW 13 % (10.5-15) 12/09/17 21:46 Plt Count 251 10^3/ul (150-450) 12/09/17 21:46 MPV 8.6 um3 (7.4-10.4) 12/09/17 21:46 Neut % (Auto) 60.5 % (38-83) 12/09/17 21:46 Lymph % (Auto) 24.3 % (25-47) L 12/09/17 21:46 [place] % (Auto) 8.2 % (0-7) H 12/09/17 21:46 Eos % (Auto) 5.7 % (0-6) 12/09/17 21:46 Baso % (Auto) 1.3 % (0-2) 12/09/17 21:46 Absolute Neuts (auto) 3.6 10^3/ul (1.5-7.7) 12/09/17 21:46 Absolute Lymphs (auto) 1.4 10^3/ul (1.0-4.8) 12/09/17 21:46 Absolute Monos (auto) 0.5 10^3/ul (0-0.8) 12/09/17 21:46 Absolute Eos (auto) 0.3 10^3/ul (0-0.6) 12/09/17 21:46 Absolute Basos (auto) 0.1 10^3/ul (0-0.2) 12/09/17 21:46 Absolute Nucleated RBC 0 10^3/ul 12/09/17 21:46 Nucleated RBC % 0 12/09/17 21:46 Sodium 140 mmol/L (139-145) 12/09/17 21:46 Potassium 3.3 mmol/L (3.5-5.0) L 12/09/17 21:46 Chloride 108 mmol/L (101-111) 12/09/17 21:46 Carbon Dioxide 23 mmol/L (22-32) 12/09/17 21:46 Anion Gap 9 mmol/L (2-11) 12/09/17 21:46 BUN 9 mg/dL (6-24) 12/09/17 21:46 Creatinine 0.77 mg/dL (0.51-0.95) 12/09/17 21:46 Est GFR ( Amer) 97.4 (>60) 12/09/17 21:46 Est GFR (Non-Af Amer) 75.7 (>60) 12/09/17 21:46 BUN/Creatinine Ratio 11.7 (8-20) 12/09/17 21:46 Glucose 103 mg/dL (70-100) H 12/09/17 21:46 Calcium 9.0 mg/dL (8.6-10.3) 12/09/17 21:46 Total Bilirubin 0.30 mg/dL (0.2-1.0) 12/09/17 21:46 AST 20 U/L (13-39) 12/09/17 21:46 ALT 13 U/L (7-52) 12/09/17 21:46 Alkaline Phosphatase 71 U/L (34-104) 12/09/17 21:46 Total Protein 6.4 g/dL (6.4-8.9) 12/09/17 21:46 Albumin 3.9 g/dL (3.2-5.2) 12/09/17 21:46 Globulin 2.5 g/dL (2-4) 12/09/17 21:46 Albumin/Globulin Ratio 1.6 (1-3) 12/09/17 21:46 Triglycerides 172 mg/dL 12/09/17 21:46 Cholesterol 156 mg/dL 12/09/17 21:46 LDL Cholesterol 81 mg/dL 12/09/17 21:46 HDL Cholesterol 40.3 mg/dL 12/09/17 21:46 TSH 0.62 mcIU/mL (0.34-5.60) 12/09/17 21:46 Free T4 1.18 ng/dL (0.61-1.12) H 12/09/17 21:46 Urine Color Straw 12/10/17: Urine Appearance Clear 12/10/17: Urine pH 5.0 (5-9) 12/10/17 00: Ur Specific [place] 1.005 (1.010-1.030) L 12/10/17 00: Urine Protein Negative (Negative) 12/10/17: Urine Ketones Negative (Negative) 12/10/17: Urine Blood Negative (Negative) 12/10/17: Urine Nitrate Negative (Negative) 12/10/17: Urine Bilirubin Negative (Negative) 12/10/17: Urine Urobilinogen Negative (Negative) 12/10/17: Ur Leukocyte Esterase 3+ (Negative) A 12/10/17: Urine WBC (Auto) 2+(11-20/hpf) (Absent) A 12/10/17: Urine RBC (Auto) Absent (Absent) 12/10/17: Ur Squamous Epith Cells Present (Absent) A 12/10/17: Ur Transition Epith Cell Present (Absent) A 12/10/17 00: Urine Bacteria Absent (Absent) 12/10/17: Urine Glucose Negative (Negative) 12/10/17 00: Salicylates < 2.50 mg/dL (<30) 12/09/17 21:46 Urine Opiates Screen None detected (None Detect) 12/10/17: Acetaminophen < 15 mcg/mL 12/09/17 21:46 Ur Barbiturates Screen None detected (None Detect) 12/10/17 00:28 Ur Phencyclidine Scrn None detected (None Detect) 12/10/17 00:28 Ur Amphetamines Screen None detected (None Detect) 12/10/17 00:28 U Benzodiazepines Scrn None detected (None Detect) 12/10/17 00: Urine Cocaine Screen None detected (None Detect) 12/10/17 00: U Cannabinoids Screen None detected (None Detect) 12/10/17 00: Serum Alcohol 41 mg/dL (<10) H 12/09/17 21:46 IMPRESSION: DIAGNOSES: PLAN:
[2017-12-11] MEDS ORDERED: Gabapentin CAP(*) 300 MG PO SCH (12:00)
[2017-12-11] MEDS: Nicotine Inhaler* 10 MG AMP INH PRN ×2 (12:37→16:10)
[2017-12-11] MEDS: Nicotine GUM* 2 MG PO PRN (12:54)
--- NOTE | 2017-12-11 13:14 | PN ---
[facility]: Group Therapy Note - Service Type Service Type: [id number] Group Psychotherapy - Cognitive Behavioral Group Therapy ( CBT):Patient was attentive and participatory in CBT programming this morning, and remained in good behavioral control. Patient expressed positive insights regarding relevant treatment interventions and goals.
== END 2017-12-11 17:00 | disposition home or self-care (01) | DRG 754 ==
LOC: ED 21:20 → BSU 12-10 13:54
PROVIDERS: ADMIT Psychiatry & Neurology Psychiatry; ATTEND Psychiatry & Neurology Psychiatry
PROC: GZHZZZZ Group Psychotherapy (ICD-10-PCS; principal; 2017-12-11)
DX: F43.21 Adjustment disorder with depressed mood (principal); I25.10 Atherosclerotic heart disease of native coronary artery without angina pectoris; J44.9 Chronic obstructive pulmonary disease, unspecified; K21.9 Gastro-esophageal reflux disease without esophagitis; E89.0 Postprocedural hypothyroidism; G57.93 Unspecified mononeuropathy of bilateral lower limbs; T42.6X2A Poisoning by other antiepileptic and sedative-hypnotic drugs, intentional self-harm, initial encounter; F17.210 Nicotine dependence, cigarettes, uncomplicated; F10.20 Alcohol dependence, uncomplicated; Y90.2 Blood alcohol level of 40-59 mg/100 ml; Y92.009 Unspecified place in unspecified non-institutional (private) residence as the place of occurrence of the external cause; Z83.49 Family history of other endocrine, nutritional and metabolic diseases
CPT/HCPCS: 36415; 80053; 80061; 80307; 80320; 80329; 81003; 81015; 83036; 84439; 84443; 85025; 87086; 90853; 93005; 99238; 99284; A9270-GY; G0480

== ENCOUNTER 2019-02-05 10:59 | Emergency (ER) | payer MEDICARE, BC ==
--- NOTE | 2019-02-05 12:58 | ED ---
Adult Trauma - HPI Summary HPI Summary: 63-year-old female presents with left foot pain left forearm and right wrist pain since yesterday. She states since she fell yesterday. States that she turned her left foot. She states she is able to ambulate. She has bruising noted to her forearm and wrist. She has been placing ice on the area. She has full range of motion of her wrist and arms bilaterally. She is right-handed. She is not blood thinners. She has been taking ibuprofen for the pain. - History of Current Complaint Chief Complaint: EDExtremityLower Stated Complaint: FELL/LEFT FOOT INJURY PER PT Time Seen by Provider: 02/05/19 12:04 Pain Intensity: 10 - Additional Pertinent History Primary Care Physician: [id number] - Allergy/Home Medications Allergies/Adverse Reactions: Allergies Allergy/AdvReac Type Severity Reaction Status Date / Time No Known Allergies Allergy Verified 02/05/19 11:01 PMH/Surg Hx/FS Hx/Imm Hx Endocrine/Hematology History: Reports: Hx Thyroid Disease - hypothyroidism Denies: Hx Anticoagulant Therapy, Hx Diabetes Cardiovascular History: Reports: Hx Coronary Artery Disease, Other Cardiovascular Problems/Disorders - arrhythmia on ekg Denies: Hx Hypertension, Hx Pacemaker/ICD Respiratory History: Reports: Hx Chronic Obstructive Pulmonary Disease (COPD) Denies: Hx Asthma GI History: Reports: Hx Gastroesophageal Reflux Disease Musculoskeletal History: Reports: Hx Bursitis - LEFT HIP, Other Musculoskeletal History - left bunion Sensory History: Reports: Hx Contacts or Glasses - GLASSES Denies: Hx Hearing Aid Opthamlomology History: Reports: Hx Contacts or Glasses - GLASSES Neurological History: Reports: Hx Headaches - ON OCASSION, Hx Nerve Disease - NEUROPATHY IN LOWER LEGS-ON MEDICATION Psychiatric History: Reports: Hx Suicide Attempt Denies: Hx Panic Disorder - Cancer History Hx Chemotherapy: No Hx Radiation Therapy: No - Surgical History Surgery Procedure, Year, and Place: thyroid removal for hyperthyroidism (only 1/ 2 thyroid removed). Rt SHOULDER ARTHROSCOPY -02/15/13. PROLAPSED UTERUS -2005 Hx Anesthesia Reactions: Yes - VOMITING AFTER PELVIC SURGERY - Immunization History Date of Tetanus Vaccine: unk Date of Influenza Vaccine: unk Infectious Disease History: No Infectious Disease History: Reports: Hx Shingles - states years ago Denies: Traveled Outside the [place] in Last 30 Days - Family History Known Family History: Positive: Other - Hypothyroid - Social History Alcohol Use: Occasionally Substance Use Type: Reports: None Smoking Status (MU): Heavy Every Day Tobacco Smoker Type: Cigarettes Amount Used/How Often: 1/2 PPD, does not want education Review of Systems Negative: Fever Negative: Chest Pain Negative: Shortness Of Breath Positive: Myalgia - left foot and forearm and right wrist pain All Other Systems Reviewed And Are Negative: Yes Physical Exam Triage Information Reviewed: Yes Vital Signs On Initial Exam: Initial Vitals Temp Pulse Resp BP Pulse Ox 98.8 F 78 16 152/95 95 02/05/19 11:00 02/05/19 11:00 02/05/19 11:00 02/05/19 11:00 02/05/19 11:00 Vital Signs Reviewed: Yes Appearance: Positive: Well-Appearing Skin: Positive: Warm, Dry Head/Face: Positive: Normal Head/Face Inspection Eyes: Positive: Normal, Conjunctiva Clear ENT: Positive: Pharynx normal Respiratory/Lung Sounds: Positive: Clear to Auscultation, Breath Sounds Present Cardiovascular: Positive: Normal, RRR Musculoskeletal: Positive: Limited @ - left ankle, right wrist, Other - tenderness and edema to left foot, right wrist and left forearm, good pulses Diagnostics - Vital Signs Vital Signs Temp Pulse Resp BP Pulse Ox 02/05/19 11:00 98.8 F 78 16 152/95 95 - Laboratory Lab Statement: Any lab studies that have been ordered have been reviewed, and results considered in the medical decision making process. - Radiology foot, ankle Radiology Interpretation Completed By: Radiologist Summary of Radiographic Findings: IMPRESSION: No fracture of the left ankle is noted. wrist Radiology Interpretation Completed By: Radiologist Summary of Radiographic Findings: IMPRESSION: NO FRACTURE OF THE WRIST IS NOTED. forearm Radiology Interpretation Completed By: Radiologist Summary of Radiographic Findings: IMPRESSION: NO FRACTURE OF THE WRIST IS NOTED. Adult Trauma Course/Dx - Course Course Of Treatment: 63-year-old female presents with left foot pain left forearm and right wrist pain since yesterday. She states since she fell yesterday. States that she turned her left foot. She states she is able to ambulate. She has bruising noted to her forearm and wrist. She has been placing ice on the area. She has full range of motion of her wrist and arms bilaterally. She is right-handed. She is not blood thinners. She has been taking ibuprofen for the pain. On exam has ecchymosis admits to right wrist and left forearm. Has edema to the top of left foot. X-rays are normal. Told to treat with rest and ice and elevation. Patient understands and agree with the plan. - Diagnoses Differential Diagnosis/HQI/PQRI: Positive: Contusion(s), Fracture, Sprain Provider Diagnoses: Injury of left foot, Injury of left forearm, Right wrist injury Discharge - Sign-Out/Discharge Documenting (check all that apply): Patient Departure Patient Received Moderate/Deep Sedation with Procedure: No - Discharge Plan Condition: Good Disposition: HOME Prescriptions: Ibuprofen TAB* [Motrin TAB* 600 MG] 600 mg PO Q8H PRN #20 tab PRN Reason: Pain Patient Education Materials: Foot Sprain (ED), R.I.C.E. Treatment (ED) Referrals: Yoselin Alcala MD [Primary Care Provider] - Additional Instructions: Take Tylenol every 6 hours and ibuprofen every 8 hours as needed for pain Apply ice, rest, elevate Follow up with primary care physician Return to ED if develop any new or worsening symptoms - Billing Disposition and Condition Condition: GOOD Disposition: Home
[2019-02-05 13:48] VITALS: BP 149/87
== END 2019-02-05 13:48 | disposition home or self-care (01) ==
LOC: ED 10:59
DX: S99.922A Unspecified injury of left foot, initial encounter (principal); S59.912A Unspecified injury of left forearm, initial encounter; S69.91XA Unspecified injury of right wrist, hand and finger(s), initial encounter; W19.XXXA Unspecified fall, initial encounter; E03.9 Hypothyroidism, unspecified; I25.10 Atherosclerotic heart disease of native coronary artery without angina pectoris; J44.9 Chronic obstructive pulmonary disease, unspecified; K21.9 Gastro-esophageal reflux disease without esophagitis; F17.210 Nicotine dependence, cigarettes, uncomplicated
CPT/HCPCS: 99282

== ENCOUNTER 2019-04-19 07:47 | Emergency (ER) | payer MEDICARE, BC ==
[2019-04-19] MEDS ORDERED: HYDROcodone/ACETAMIN 5-325 MG* 1 TAB PO ONE ×2 (08:19→09:28)
[2019-04-19] MEDS ORDERED: Ketorolac *IM* INJ* 60 MG/2 ML VIAL IM ONE (08:20)
--- NOTE | 2019-04-19 08:24 | ED ---
Upper Extremity Pain - HPI Summary HPI Summary: Patient is a 63 y/o F w/ Hx of right shoulder rotator cuff repair surgery who presents to [facility] with complaints of right shoulder pain as a result of fall. Fall occurred around 2330 04/18/19. She reports that she heard something outside , went to get up to check out this noise, and accidentally fell out of her bed. She states that she is unsure of the exact BETSY, but she believes that she might have stuck out her arms as she fell. She reports shoulder pain radiates down her entire right arm. Decreased ROM secondary to pain is reported as well. Pain is characterized as a throbbing. She states that it feels like she was "hit by a tractor trailer". Patient claims that she has some neck pain, but she relates this to having to stay in an uncomfortable position as a result of her shoulder pain. Patient does not report any fever, chills, erythema of eyes, sore throat, CP, SOB, cough, abdominal pain, N/V, dysuria, hematuria, edema, rash, and dizziness. 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 Home medications and allergies are reviewed. - History of Current Complaint Chief Complaint: EDExtremityUpper Stated Complaint: R ARM PAIN PER PT Time Seen by Provider: 04/19/19 07:55 Hx Obtained From: Patient Mechanism Of Injury: Fall From Height Of: - bed Onset/Duration: Started Hours Ago, Still Present Timing: Constant, Lasting Hours Severity Currently: Severe Pain Location: Shoulder - right Character: Throbbing Aggravating Factor(s): Movement Alleviating Factor(s): Nothing Associated Signs & Symptoms: Positive: Neck Pain - related to position, Other - does not report any fever, chills, erythema of eyes, sore throat, CP, SOB, cough , abdominal pain, N/V, dysuria, hematuria, myalgia, edema, rash, and dizziness. Negative: Swelling, Redness - of eyes, Fever, Chest Pain, SOB, Nausea, Vomiting - Allergies/Home Medications Allergies/Adverse Reactions: Allergies Allergy/AdvReac Type Severity Reaction Status Date / Time No Known Allergies Allergy Verified 02/05/19 11:01 PMH/Surg Hx/FS Hx/Imm Hx Endocrine/Hematology History: Reports: Hx Thyroid Disease - hypothyroidism Denies: Hx Anticoagulant Therapy, Hx Diabetes Cardiovascular History: Reports: Hx Coronary Artery Disease, Other Cardiovascular Problems/Disorders - arrhythmia on ekg Denies: Hx Hypertension, Hx Pacemaker/ICD Respiratory History: Reports: Hx Chronic Obstructive Pulmonary Disease (COPD) Denies: Hx Asthma GI History: Reports: Hx Gastroesophageal Reflux Disease Musculoskeletal History: Reports: Hx Bursitis - LEFT HIP, Other Musculoskeletal History - left bunion Sensory History: Reports: Hx Contacts or Glasses - GLASSES Denies: Hx Hearing Aid Opthamlomology History: Reports: Hx Contacts or Glasses - GLASSES Neurological History: Reports: Hx Headaches - ON OCASSION, Hx Nerve Disease - NEUROPATHY IN LOWER LEGS-ON MEDICATION Psychiatric History: Reports: Hx Suicide Attempt Denies: Hx Panic Disorder - Cancer History Hx Chemotherapy: No Hx Radiation Therapy: No - Surgical History Surgery Procedure, Year, and Place: thyroid removal for hyperthyroidism (only 1/ 2 thyroid removed). Rt SHOULDER ARTHROSCOPY -02/15/13. PROLAPSED UTERUS -2005 Hx Anesthesia Reactions: Yes - VOMITING AFTER PELVIC SURGERY - Immunization History Date of Tetanus Vaccine: unk Date of Influenza Vaccine: unk Infectious Disease History: No Infectious Disease History: Reports: Hx Shingles - states years ago Denies: Traveled Outside the [place] in Last 30 Days - Family History Known Family History: Positive: Other - Hypothyroid - Social History Alcohol Use: Occasionally Substance Use Type: Reports: None Smoking Status (MU): Heavy Every Day Tobacco Smoker Type: Cigarettes Amount Used/How Often: 1/2 PPD, does not want education Review of Systems Negative: Fever, Chills Negative: Erythema Negative: Sore Throat Negative: Chest Pain Negative: Shortness Of Breath, Cough Negative: Abdominal Pain, Vomiting, Nausea Negative: dysuria, hematuria Positive: Myalgia - right shoulder, neck pain which is related position , Decreased ROM - right arm . Negative: Edema Negative: Rash Neurological: Other - negative - dizziness All Other Systems Reviewed And Are Negative: Yes Physical Exam - Summary Physical Exam Summary: Constitutional: Well-developed, Well-nourished, Alert. (-) Distressed Skin: Warm, Dry HENT: Normocephalic; Atraumatic Eyes: Conjunctiva normal Neck: Musculoskeletal ROM normal neck. (-) JVD, (-) Stridor, (-) Tracheal deviation Cardio: Rhythm regular, rate normal, Heart sounds normal; Intact distal pulses; The pedal pulses are 2+ and symmetric. Radial pulses are 2+ and symmetric. (-) Murmur Pulmonary/Chest wall: Effort normal. (-) Respiratory distress, (-) Wheezes, (-) Rales Abd: Soft, (-) tenderness, (-) Distension, (-) Guarding, (-) Rebound Musculoskeletal: Pain with palpation of the right hand and wrist noted. There is also tenderness to palpation over the right ulna and radius. ROM is decreased secondary to pain. No snuffbox tenderness is noted. (-) Edema Lymph: (-) Cervical adenopathy Neuro: Alert, Oriented x3 Psych: Mood and affect Normal Triage Information Reviewed: Yes Vital Signs On Initial Exam: Initial Vitals Temp Pulse Resp BP Pulse Ox 97.8 F 75 16 155/92 98 04/19/19 07:49 04/19/19 07:49 04/19/19 07:49 04/19/19 07:49 04/19/19 07:49 Vital Signs Reviewed: Yes Diagnostics - Vital Signs Vital Signs Temp Pulse Resp BP Pulse Ox 04/19/19 07:49 97.8 F 75 16 155/92 98 - Laboratory Result Diagrams: 04/19/19 09:04 04/19/19 09:04 Lab Statement: Any lab studies that have been ordered have been reviewed, and results considered in the medical decision making process. - Radiology RIGHT SHOULDER X-RAY Radiology Interpretation Completed By: Radiologist Summary of Radiographic Findings: RIGHT SHOULDER X-RAY IMPRESSION: COMMINUTED FRACTURE OF THE PROXIMAL HUMERUS. THIS REPORT WAS REVIEWED BY DR. FRENCH. RIGHT ELBOW X-RAY Radiology Interpretation Completed By: Radiologist Summary of Radiographic Findings: RIGHT ELBOW X-RAY IMPRESSION: 1. LIMITED STUDY. 2. OSTEOPENIA. 3. . NO ACUTE OSSEOUS INJURY. IF SYMPTOMS PERSIST, RECOMMEND REPEAT IMAGING. THIS REPORT WAS REVIEWED BY DR. FRENCH. - EKG 0909 Cardiac Rate: NL - rate of 63 BPM EKG Rhythm: Sinus Rhythm Summary of EKG Findings: EKG showed NSR with rate of 66 BPM. New TWI in leads V1 - V4. This EKG was reviewed and interpreted by ED physician. Re-Evaluation - Re-Evaluation First Eval Comment: Offered admission for nursing and physical therapy. This was declined, as she has family resources. Patient was discharged to home with PCP, ortho, and cardio follow up. Course/Dx - Course Course Of Treatment: Patient is a 63 y/o F w/ Hx of right shoulder rotator cuff repair surgery who presents to [facility] with complaints of right shoulder pain as a result of fall. She reports shoulder pain radiates down her entire right arm. Decreased ROM secondary to pain is reported as well. On physical exam, pain with palpation of the right hand and wrist noted. There is also tenderness to palpation over the right ulna and radius. ROM is decreased secondary to pain. No snuffbox tenderness is noted. (-) Edema. RIGHT SHOULDER X-RAY IMPRESSION: COMMINUTED FRACTURE OF THE PROXIMAL HUMERUS. RIGHT ELBOW X-RAY IMPRESSION: 1. LIMITED STUDY. 2. OSTEOPENIA. 3. . NO ACUTE OSSEOUS INJURY. IF SYMPTOMS PERSIST, RECOMMEND REPEAT IMAGING. Bloodwork was obtained. Abnormal values include WBC 11.8, sodium 132, glucose 119. Creatinine was 0.64 and BUN 11. During ED course, patient received toradol 60 mg and norco 5-325 tab x2. 0859 - Patient's case was discussed with Dr. Kebede, he states that the patient has no indication for reduction. Surgical options to be discussed at a later time. Social admission if needed is recommended. 0940 - Patient's case was discussed once more with Dr. Kebede. Surgery noted indicated. Admission to be offered. Patient was provided ISIAH sling. Offered admission for nursing and physical therapy. This was declined, as she has family resources. Patient was discharged to home with PCP, ortho, and cardio follow up. - Diagnoses Provider Diagnoses: Acute electrocardiogram changes, Fracture of proximal end of right humerus - Physician Notifications Discussed Care of Patient With: Robert Kebede Time Discussed With Above Provider: 08:59 Instructed by Provider To: Other - 0859 - Patient's case was discussed with Dr. Kebede, he states that the patient has no indication for reduction. Surgical options to be discussed at a later time. Social admission if needed is recommended. 0940 - Patient's case was discussed once more with Dr. Kebede. Surgery noted indicated. Admission to be offered. Discharge ED - Sign-Out/Discharge Documenting (check all that apply): Patient Departure - discharge Patient Received Moderate/Deep Sedation with Procedure: No - Discharge Plan Condition: Stable Disposition: HOME Prescriptions: HYDROcodone/ACETAMIN 5-325 MG* [Venus 5-325 TAB*] 1 - 2 tab PO Q6H PRN #15 tab MDD 8 PRN Reason: Pain - Severe Lidocaine PATCH 5%* [Lidoderm 5% Patch*] 1 patch TRANSDERM DAILY #10 patch Patient Education Materials: Proximal Humerus Fracture (ED) Referrals: Yoselin Alcala MD [Primary Care Provider] - Fletcher Mann MD [Medical Doctor] - 5 Days Robert Kebede MD [Medical Doctor] - 3 Days Additional Instructions: Please follow up with an orthopedic doctor in 2-3 days with regards to your proximal humerus fracture. Follow up with a master mechanic in 3-5 days with regards to your EKG changes. Please return to ED for any new or worsening symptoms. - Attestation Statements Document Initiated by Scribe: Yes Documenting Scribe: NICK BUTTS Provider For Whom Krzysztofibe is Documenting (Include Credential): SIMRAN FRENCH MD Scribe Attestation: NICK Fried, scribed for SIMRAN FRENCH MD on 04/19/19 at 1225. Status of Scribe Document: Ready
[2019-04-19 09:13] LABS: Hematocrit 41 % (35-47); Mean Corpuscular HGB Conc 34 g/dL (31-36); Mean Corpuscular Hemoglobin 33 pg (27-31); Mean Corpuscular Volume 96 fL (80-97); Mean Platelet Volume 8.1 fL (7.4-10.4); Platelet Count 259 10^3/uL (150-450); Red Blood Count 4.24 10^6 /uL (3.70-4.87); Red Cell Distribution Width 14 % (10-15); White Blood Count 11.8 10^3/uL (3.5-10.8)
[2019-04-19 09:27] LABS: INR 0.91 (0.82-1.09)
[2019-04-19 09:29] LABS: Albumin 4.3 g/dL (3.2-5.2); Albumin/Globulin Ratio 1.7 (1-3); BUN/Creatinine Ratio 17.2 (8-20); EGFR African American 112.7 (>60); EGFR Non-African American 93.1 (>60); Globulin 2.6 g/dL (2-4); Potassium 4.4 mmol/L (3.5-5.0); Total Bilirubin 0.5 mg/dL (0.2-1.0); Total Protein 6.9 g/dL (6.4-8.9)
[2019-04-19 11:05] VITALS: BP 107/71
== END 2019-04-19 10:55 | disposition home or self-care (01) ==
LOC: ED 07:47
DX: S42.214A Unspecified nondisplaced fracture of surgical neck of right humerus, initial encounter for closed fracture (principal); W06.XXXA Fall from bed, initial encounter; Y93.89 Activity, other specified; Y92.003 Bedroom of unspecified non-institutional (private) residence as the place of occurrence of the external cause; M54.2 Cervicalgia; M85.821 Other specified disorders of bone density and structure, right upper arm; Z98.890 Other specified postprocedural states; R94.31 Abnormal electrocardiogram [ECG] [EKG]; I25.10 Atherosclerotic heart disease of native coronary artery without angina pectoris; J44.9 Chronic obstructive pulmonary disease, unspecified; G90.09 Other idiopathic peripheral autonomic neuropathy; F17.210 Nicotine dependence, cigarettes, uncomplicated
CPT/HCPCS: 36415; 80053; 85027; 85610; 85730; 93005; 96372; 99283; J1885